=== PATIENT | male | born 1975 | race Caucasian/White ===

== ENCOUNTER 2020-12-09 15:02 | Inpatient (IN) | payer OTHER, SELFPAY ==
[~2020-12-09] VITALS: Ht 190.5 cm; Wt 115.7 kg
[2020-12-09 15:05] VITALS: Ht 190.5 cm; Wt 115.7 kg
[2020-12-09 17:11] LABS: BASOPHIL % 0.9 % (0.2-1.5); PLATELET COUNT 323 x10^3mcL (152-348); RED CELL DISTRIBUTION WIDTH 13.9 % (12.1-16.2)
[2020-12-09 17:49] LABS: CALCIUM 8.6 mg/dL (8.5-10.1); CARBON DIOXIDE 23.2 mmol/L (21-32); CHLORIDE SERUM 98 mmol/L (98-107); CREATININE SERUM 0.9 mg/dL (0.7-1.3); GFR1 > 60 mL/min; GLUCOSE SERUM 127 mg/dL (74-106); POTASSIUM SERUM 3.6 mmol/L (3.5-5.1); SODIUM SERUM 132 mmol/L (136-145)
[2020-12-09 17:54] LABS: ALKALINE PHOSPHATASE 64 U/L (46-116); ALT/SGPT 183 U/L (16-63); AST/SGOT 64 U/L (15-37); BILIRUBIN TOTAL 0.5 mg/dL (0.20-1.00); LACTIC DEHYDROGENASE (LDH) 305 U/L (100-190); TOTAL PROTEIN, SERUM 7.8 g/dL (6.4-8.2)
[2020-12-09 18:01] LABS: ALBUMIN 3.1 g/dL (3.4-5.0)
[2020-12-10 07:05] LABS: BASOPHIL % 0.2 % (0.2-1.5); PLATELET COUNT 343 x10^3mcL (152-348); RED CELL DISTRIBUTION WIDTH 13.9 % (12.1-16.2)
[2020-12-10 07:26] LABS: ALKALINE PHOSPHATASE 60 U/L (46-116); ALT/SGPT 164 U/L (16-63); AST/SGOT 50 U/L (15-37); BILIRUBIN TOTAL 0.6 mg/dL (0.20-1.00); CALCIUM 8.7 mg/dL (8.5-10.1); CARBON DIOXIDE 28.2 mmol/L (21-32); CHLORIDE SERUM 98 mmol/L (98-107); CREATININE SERUM 0.9 mg/dL (0.7-1.3); GFR1 > 60 mL/min; GLUCOSE SERUM 82 mg/dL (74-106); MAGNESIUM 2.4 mg/dL (1.8-2.4); POTASSIUM SERUM 3.9 mmol/L (3.5-5.1); SODIUM SERUM 134 mmol/L (136-145); TOTAL PROTEIN, SERUM 7.3 g/dL (6.4-8.2)
[2020-12-10 07:27] LABS: ALBUMIN 2.9 g/dL (3.4-5.0)
[2020-12-10] MEDS ORDERED: ATIVAN1 MG (09:12)
[2020-12-10] MEDS ORDERED: PROS (09:13)
[2020-12-10 13:48] VITALS: BP 116/72
[2020-12-10 20:41] VITALS: BP 127/66
[2020-12-10 22:14] VITALS: BP 116/76
[2020-12-11 06:31] VITALS: BP 123/79
[2020-12-11 08:04] LABS: BASOPHIL % 0.2 % (0.2-1.5); PLATELET COUNT 306 x10^3mcL (152-348); RED CELL DISTRIBUTION WIDTH 13.9 % (12.1-16.2)
[2020-12-11 08:47] LABS: ALKALINE PHOSPHATASE 55 U/L (46-116); ALT/SGPT 119 U/L (16-63); AST/SGOT 34 U/L (15-37); BILIRUBIN TOTAL 0.67 mg/dL (0.20-1.00); CALCIUM 8.2 mg/dL (8.5-10.1); CARBON DIOXIDE 24.8 mmol/L (21-32); CHLORIDE SERUM 95 mmol/L (98-107); GFR1 > 60 mL/min; GLUCOSE SERUM 84 mg/dL (74-106); MAGNESIUM 2.2 mg/dL (1.8-2.4); POTASSIUM SERUM 3.7 mmol/L (3.5-5.1); SODIUM SERUM 130 mmol/L (136-145)
[2020-12-11 09:10] LABS: ALBUMIN 2.4 g/dL (3.4-5.0)
[2020-12-11 09:15] VITALS: BP 122/74
[2020-12-11 13:42] VITALS: BP 115/67
[2020-12-11 16:21] VITALS: BP 120/73
[2020-12-12 06:25] VITALS: BP 117/73
[2020-12-12 08:35] LABS: BASOPHIL % 0.3 % (0.2-1.5); PLATELET COUNT 352 x10^3mcL (152-348); RED CELL DISTRIBUTION WIDTH 13.7 % (12.1-16.2)
[2020-12-12 08:46] LABS: ALKALINE PHOSPHATASE 54 U/L (46-116); ALT/SGPT 90 U/L (16-63); AST/SGOT 25 U/L (15-37); BILIRUBIN TOTAL 0.57 mg/dL (0.20-1.00); CALCIUM 8.3 mg/dL (8.5-10.1); CARBON DIOXIDE 27.2 mmol/L (21-32); CHLORIDE SERUM 96 mmol/L (98-107); CREATININE SERUM 0.9 mg/dL (0.7-1.3); GFR1 > 60 mL/min; GLUCOSE SERUM 90 mg/dL (74-106); MAGNESIUM 2.3 mg/dL (1.8-2.4); POTASSIUM SERUM 3.9 mmol/L (3.5-5.1); SODIUM SERUM 129 mmol/L (136-145); TOTAL PROTEIN, SERUM 6.9 g/dL (6.4-8.2)
[2020-12-12 08:53] LABS: ALBUMIN 2.3 g/dL (3.4-5.0)
[2020-12-12 09:29] VITALS: BP 123/72
[2020-12-12 14:37] VITALS: BP 110/55
[2020-12-12 17:21] VITALS: BP 110/69
[2020-12-12 21:47] VITALS: BP 101/50
[2020-12-13 06:37] VITALS: BP 114/71
[2020-12-13 08:11] LABS: BASOPHIL % 0.2 % (0.2-1.5); RED CELL DISTRIBUTION WIDTH 13.6 % (12.1-16.2)
[2020-12-13 08:12] LABS: ALKALINE PHOSPHATASE 53 U/L (46-116); ALT/SGPT 93 U/L (16-63); AST/SGOT 43 U/L (15-37); BILIRUBIN TOTAL 0.4 mg/dL (0.20-1.00); CALCIUM 7.9 mg/dL (8.5-10.1); CARBON DIOXIDE 25.6 mmol/L (21-32); CHLORIDE SERUM 100 mmol/L (98-107); CREATININE SERUM 0.9 mg/dL (0.7-1.3); GFR1 > 60 mL/min; GLUCOSE SERUM 89 mg/dL (74-106); MAGNESIUM 2.1 mg/dL (1.8-2.4); POTASSIUM SERUM 3.6 mmol/L (3.5-5.1); SODIUM SERUM 135 mmol/L (136-145); TOTAL PROTEIN, SERUM 6.6 g/dL (6.4-8.2)
[2020-12-13 08:15] LABS: ALBUMIN 2.2 g/dL (3.4-5.0)
[2020-12-13 09:21] LABS: PLATELET COUNT 408 x10^3mcL (152-348)
[2020-12-13 09:25] VITALS: BP 101/72
[2020-12-13 12:25] VITALS: BP 110/72
[2020-12-13 16:49] VITALS: BP 117/72
[2020-12-13 20:55] VITALS: BP 124/69
[2020-12-14] VITALS (9 sets, daily range): BP systolic 95–117; BP diastolic 56–75
[2020-12-14 07:35] LABS: BASOPHIL % 0.4 % (0.2-1.5); RED CELL DISTRIBUTION WIDTH 13.8 % (12.1-16.2)
[2020-12-14 08:33] LABS: PLATELET COUNT 411 x10^3mcL (152-348)
[2020-12-14 09:27] LABS: ALKALINE PHOSPHATASE 53 U/L (46-116); ALT/SGPT 88 U/L (16-63); AST/SGOT 35 U/L (15-37); BILIRUBIN TOTAL 0.3 mg/dL (0.20-1.00); CALCIUM 8.1 mg/dL (8.5-10.1); CARBON DIOXIDE 27.1 mmol/L (21-32); CHLORIDE SERUM 102 mmol/L (98-107); CREATININE SERUM 0.9 mg/dL (0.7-1.3); GFR1 > 60 mL/min; GLUCOSE SERUM 82 mg/dL (74-106); MAGNESIUM 2.2 mg/dL (1.8-2.4); POTASSIUM SERUM 3.7 mmol/L (3.5-5.1); SODIUM SERUM 138 mmol/L (136-145); TOTAL PROTEIN, SERUM 6.7 g/dL (6.4-8.2)
[2020-12-14 09:34] LABS: ALBUMIN 2.3 g/dL (3.4-5.0)
[2020-12-14 14:12] LABS: BILIRUBIN DIRECT 0.11 mg/dL (0.0-0.2); BILIRUBIN TOTAL 0.3 mg/dL (0.20-1.00); TOTAL PROTEIN, SERUM 6.8 g/dL (6.4-8.2)
[2020-12-14 14:14] LABS: ALBUMIN 2.3 g/dL (3.4-5.0)
[2020-12-14] MEDS ORDERED: ZINC SULFATE220 MG PO (14:46)
[2020-12-14] MEDS ORDERED: ELIQUIS2.5 MG PO (14:46)
[2020-12-14] MEDS ORDERED: PEP20 PO (14:46)
[2020-12-14] MEDS ORDERED: DECADRON6 MG PO (14:48)
[2020-12-14] MEDS ORDERED: CEF250 PO (14:49)
[2020-12-14] MEDS ORDERED: PROAIR HFA8.5 GM IH (14:49)
[2020-12-14] MEDS ORDERED: METFORMIN HCL500 M4 PO (14:50)
[2020-12-14] MEDS ORDERED: ACCU-CHEK1 EAC2 MC (14:51)
[2020-12-15 05:20] VITALS: BP 116/69
[2020-12-15 08:43] VITALS: BP 116/72
[2020-12-15 12:02] VITALS: BP 106/71
[2020-12-15 17:05] VITALS: BP 113/72
[2020-12-15 20:25] VITALS: BP 114/73
[2020-12-16 05:13] VITALS: BP 117/77
[2020-12-16 09:56] VITALS: BP 104/75
== END 2020-12-16 12:24 | disposition left against medical advice (07) | DRG 177 ==
LOC: ED 15:02 → MU 17:19 → DU 17:19 → MU 12-10 17:29
PROVIDERS: Emergency Medicine; ADMIT Internal Medicine; ATTEND Internal Medicine
PROC: XW033E5 Introduction of Remdesivir Anti-infective into Peripheral Vein, Percutaneous Approach, New Technology Group 5 (ICD-10-PCS; principal; 2020-12-10)
PROC: XW13325 Transfusion of Convalescent Plasma (Nonautologous) into Peripheral Vein, Percutaneous Approach, New Technology Group 5 (ICD-10-PCS; 2020-12-14)
DX: U07.1 COVID-19 (principal); J12.82 Pneumonia due to coronavirus disease 2019; J96.01 Acute respiratory failure with hypoxia; E87.1 Hypo-osmolality and hyponatremia; F41.9 Anxiety disorder, unspecified; J45.909 Unspecified asthma, uncomplicated; E11.9 Type 2 diabetes mellitus without complications
CPT/HCPCS: 36600; 83880; 85378; 87804; G0378; J0456; J0696; J7030; J7040; J7050; J7060; U0003